=== PATIENT | male | born 2000 | race Caucasian/White ===

== ENCOUNTER 2021-05-18 15:23 | Outpatient (CLI) | payer SELFPAY ==
--- NOTE | 2021-05-18 15:31 | XR_ITS ---
WS: [id number] Right shoulder, 3 views, 05/18/2021 Clinical Data: S46.911A - Strain of unspecified muscle, fascia and tendo... Comparison: None. Findings: No fractures or dislocations are seen. The AC joint is normal. The adjacent right clavicle, right sca pula and ribs are normal. The soft tissues are unremarkable. XR/XR shoulder RT min 2V* [id number] Impression: Negative right shoulder.
== END 2021-05-18 15:24 | disposition home or self-care (01) ==
LOC: RAD 15:29
PROVIDERS: PCP Registered Nurse; Visit Provider Registered Nurse
DX: M25.511 Pain in right shoulder (principal)
CPT/HCPCS: 73030

== ENCOUNTER 2021-11-02 12:27 | Emergency (ER) | payer OTHER, SELFPAY ==
[2021-11-02 12:35] VITALS: BP 120/79; PULSE 79; RESP 18; TEMP 36.8; O2SAT 98; BMI 27.3
--- NOTE | 2021-11-02 12:50 | XR_ITS ---
WS: [id number] Right femur and thigh, AP and lateral views, 11/02/2021 Clinical Data: crush injury Comparison: None Findings: No fractures or dislocations are seen. The soft tissues are normal. The visualized knee shows no abno rmalities. The femoral head shows no erosion, sclerosis, narrowing or fragmentation of the right femoral head. XR/XR femur RT 1V [id number] Impression: Negative right femur and thigh.
--- NOTE | 2021-11-02 12:50 | XR_ITS ---
WS: [id number] Right hip, AP and frog-leg views, 11/02/2021 Clinical Data: crush injury/one view pelvis too please Comparison: None. Findings: No fractures or dislocations are seen. The hip joint is intact. The soft tissues are not remarkable. The adjacent pelvis is normal. XR/XR hip RT 2-3V wo/w pel* [id number] Impression: Negative right hip. Tonnis classification: grade 0: normal radiographs
--- NOTE | 2021-11-02 13:01 | USR_ITS ---
PROCEDURE INFORMATION: Exam: US Duplex Right Lower Extremity Arteries Or Arterial Bypass Grafts Exam date and time: 11/02/2021 1:42 PM Age: 21 years old Clinical indication: Injury or trauma; Other: Crushing injury to right hip at work today; Work related; Injury date: 11/02/2021; Injury details: A co-worker crushed him against a wall with a motorized bucket. Patient HX: No lacerations, no evident bruising of the hip or leg or calf or foot. No apparent edema of the rle. Considerable pain. ; Additional info: Crush injury/swelling TECHNIQUE: Imaging protocol: Right Real-time duplex scan of the arteries or arterial bypass grafts of the right lower extremity with 2-D umana scale, color Doppler flow and spectral waveform analysis. Images documented and saved. COMPARISON: CR XR femur RT 1V [id number] 11/02/2021 1:07 PM FINDINGS: Right common femoral artery: No occlusion or significant stenosis. Normal waveform. No pseudoaneurysm in the inguinal region. Right superficial femoral artery: No occlusion or significant stenosis. Normal waveform. Right popliteal artery: No occlusion or significant stenosis. Normal waveform. Right calf/foot arteries: No occlusion or significant stenosis in the visualized arteries. Normal waveforms. Dorsalis pedis artery is patent. Soft tissues: No hematoma or collection. US/[place] [id number] IMPRESSION: No stenosis or occlusion.
--- NOTE | 2021-11-02 13:02 | W.ED.LOWEXIN ---
Documented by User: RAQUEL Perez 11/02/21 15:13 HPI - Extremity Injury (Lower) General: Chief Complaint: Trauma Stated Complaint: Workmans Comp/body trauma from gravel bucket Time Seen by Provider: 11/02/21 12:42 Source: patient Mode of arrival: ambulatory Limitations: no limitations History of Present Illness: Patient is a 21-year-old male who presents to ED today with a Worker's Comp injury to his right lower extremity. Patient states he was at work when another individual who was operating some type of heavy machinery with a hydraulic bucket accidentally engaged the bucket which then clamped down on patient's right hip/thigh area. Patient is reporting fairly significant discomfort to this area. No back pain/abdominal pain. Patient has been ambulatory. Denies numbness, tingling, loss of sensation to leg. No obvious deformity noted. MD complaint: hip injury and thigh injury Onset (ago): hour(s) Injury: Right: hip, pelvis and thigh Type of Injury: other (crush) Place: work Severity: moderate Relieving factors: immobilization Exacerbating factors: weight bearing, movement and palpation Context: other (crush injury) Associated symptoms: Reports no associated symptoms Other symptoms: none Review of Systems Eyes: Denies: change in vision Card: Denies: chest pain Resp: Denies: dyspnea GI: Denies: abdominal pain, nausea or vomiting Musc: Reports: extremity pain (R lateral thigh/pelvis) and extremity swelling; Denies: neck pain, back pain, joint redness, joint warmth or joint stiffness Neuro: Denies: headache(s), numbness in extremities, weakness in extremities, sensory changes or dizziness PFS ED PFSH: Family History Other Diabetes Social History Smoking and tobacco status: never smoked Alcohol intake: never Adopted: No Caregiver/support person: Yes Lives independently: Yes Current occupational status: employed History of recent travel: Yes ([place] ) Sexually active: Yes Current gender identity: Male Physical Exam Const: COMMON NORMALS: no acute distress, average body habitus, patient oriented x3, no limitations, healthy appearing, alert and well nourished ORIENTATION/CONSCIOUSNESS: Yes awake, Yes oriented to person, Yes oriented to place and Yes oriented to time HENMT: COMMON NORMALS: normocephalic and atraumatic HEAD & SCALP: normocephalic and atraumatic Chest: COMMONS NORMALS: normal inspection of the chest and normal palpation of entire chest wall Resp: COMMON NORMALS: normal respiratory effort and clear to auscultation bilaterally AUSCULTATION: clear to auscultation bilaterally Cardio: COMMON NORMALS: regular rate and regular rhythm RATE: regular rate RHYTHM: regular rhythm GI: COMMON NORMALS: Normal to inspection, nondistended, normoactive bowel sounds present, Soft to palpation, non-tender, No hepatosplenomegaly present and no masses INSPECTION: Yes normal to inspection PALPATION: Yes Soft to palpation and Yes No hepatosplenomegaly present GI image (male): 1. 2. patient has two small areas of superficial abrasions to anteriolateral R hip/pelvis; no bony deformity noted; he does have some swelling to anteriolateral thigh but no tightness noted Back/Pelvis: COMMON NORMALS: thoracic and lumbar spine normal to inspection, no thoracic nor lumbar tenderness and thoraco-lumbar ROM normal Extremity: COMMON NORMALS: full ROM, capillary refill normal, no clubbing, cyanosis or edema, no calf tenderness and no pedal edema GENERAL: Yes normal exam except as noted OTHER: see diagram above; patient has normal sensation to R LE; DP/PT pulses normal with brisk cap refill Neuro: LISA COMA SCALE: document GCS findings Lisa coma scale eye opening: Spontaneous Lisa coma scale verbal response: Orientated F[place]ett coma scale motor response: Obey commands Lisa coma scale total score: 15 COMMON NORMALS: patient oriented x3, moves all extremities, no focal motor deficits, no sensory deficits noted and gait normal SENSORIUM/ORIENTATION: Yes alert, Yes oriented to person, Yes oriented to place and Yes oriented to time Skin: NARRATIVE SKIN EXAM: abrasions to anteriolateral R thigh; otherwise normal skin exam Course Vital Signs: Vital signs: Vital Signs Temperature 98.2 F 11/02/21 15:54 Pulse Rate 75 11/02/21 15:54 Respiratory Rate 18 11/02/21 15:54 Blood Pressure 135/75 11/02/21 15:54 Pulse Oximetry 100 11/02/21 15:54 MDM - Extremity Injury (Lower) Medical Decision Making Dr. Barros will assume care for patient as he is a trauma patient. Lab Data : 11/02/21 15:43 Radiology Impressions Femur X-Ray 11/02/21 12:50 Impression: Negative right femur and thigh. Hip/Pelvis X-Ray 11/02/21 12:50 Impression: Negative right hip. Tonnis classification: grade 0: normal radiographs Duplex Scan Lower Extremity Artery 11/02/21 13:01 IMPRESSION: No stenosis or occlusion. Pelvis X-Ray 11/02/21 14:01 Impression: Negative for fracture. Laboratory Results WBC 11.8 10^3/uL (4.5-13.0) 11/02/21 15:43 RBC 4.88 10^6/uL (4.1-5.3) 11/02/21 15:43 Hgb 14.6 g/dL (11.7-16.6) 11/02/21 15:43 Hct 42.3 % (42.0-52.0) 11/02/21 15:43 MCV 86.7 fl (80-94) 11/02/21 15:43 MCH 29.9 pg (28.0-34.0) 11/02/21 15:43 MCHC 34.5 g/dL (30.0-36.0) 11/02/21 15:43 RDW 12.9 % (12.1-15.1) 11/02/21 15:43 Plt Count 312 10^3/cmm (130-400) 11/02/21 15:43 MPV 10.1 fL (7.4-10.4) 11/02/21 15:43 Neut % (Auto) 68.5 % 11/02/21 15:43 Lymph % (Auto) 20.1 % 11/02/21 15:43 Smyth % (Auto) 8.0 % 11/02/21 15:43 Eos % (Auto) 2.6 % 11/02/21 15:43 Baso % (Auto) 0.5 % 11/02/21 15:43 Neut # (Auto) 8.07 10^3/uL (1.8-8.0) H 11/02/21 15:43 Lymph # (Auto) 2.4 10^3/uL (1.5-6.5) 11/02/21 15:43 Smyth # (Auto) 0.9 10^3/uL (0.2-0.9) 11/02/21 15:43 Eos # (Auto) 0.3 10^3/uL (0.0-0.8) 11/02/21 15:43 Baso # (Auto) 0.1 10^3/uL (0.0-0.1) 11/02/21 15:43 Nucleated RBC % (auto) 0 % 11/02/21 15:43 Nucleated RBCs # 0.0 /100WBC 11/02/21 15:43 Urine Color Yellow (Yellow) 11/02/21 14:44 Urine Appearance Clear (CLEAR) 11/02/21 14:44 Urine pH 6 (5-7) 11/02/21 14:44 Ur Specific Jerome 1.010 (1.005-1.030) 11/02/21 14:44 Urine Protein Neg (Negative) 11/02/21 14:44 Urine Glucose (UA) Norm (Normal) 11/02/21 14:44 Urine Ketones Negative (Negative) 11/02/21 14:44 Urine Blood Neg (Negative) 11/02/21 14:44 Urine Nitrate Negative (Negative) 11/02/21 14:44 Urine Bilirubin Neg (Negative) 11/02/21 14:44 Urine Urobilinogen Norm mg/dL (Negative) 11/02/21 14:44 Ur Leukocyte Esterase Negative (Negative) 11/02/21 14:44 Urine Opiates Screen Negative ng/mL (Negative) 11/02/21 14:44 Ur Barbiturates Screen Negative ng/mL (Negative) 11/02/21 14:44 Ur Phencyclidine Scrn Negative ng/mL (Negative) 11/02/21 14:44 Ur Amphetamines Screen Negative ng/mL (Negative) 11/02/21 14:44 U Benzodiazepines Scrn Negative ng/mL (Negative) 11/02/21 14:44 Urine Cocaine Screen Negative ng/mL (Negative) 11/02/21 14:44 U Marijuana (THC) Screen Negative ng/mL (Negative) 11/02/21 14:44 Ethyl Alcohol < 10 mg/dL (0-10) 11/02/21 15:35 Discharge Plan Discharge Patient Disposition: Home Clinical Impression: Work related injury Condition: Stable Prescriptions: New diclofenac sodium 75 mg tablet,delayed release (DR/EC) 75 mg PO Q12H PRN (Reason: pain) Qty: 20 0RF hydrocodone-acetaminophen 5-325 mg tablet 1 tab PO Q6H PRN (Reason: pain) Qty: 10 0RF No Action fluticasone propion-salmeterol [Advair Diskus] 250-50 mcg/dose blister with device 1 inh INHALATION BID Qty: 1 3RF Rx Instructions: 340B, please call if no longer on 340B. Ventolin HFA 90 mcg/actuation HFA aerosol inhaler 1 inh INHALATION QID PRN (Reason: Shortness Of Breath) 0RF Rx Instructions: 340b. May sub proair if needed. Discharge Orders: Discharge ED (Routine); Ordered 11/02/21 Ordered By: Bereket Barros Referrals: Ashleigh Escobar FNP [Primary Care Provider] - Discharge Diet: Usual diet Discharge Activity: Increase activity as tolerated Patient Instructions: Opioid Safety Activity Restrictions/Additional Instructions: Follow-up with your primary care doctor if you have any problems or return to the emergency room. Coding Level of Care Code ED Curing Oven Attendant for Chg Fwd Exam Comprehensive Documented by User: Bereket Barros, 11/02/21 17:11 HPI - Extremity Injury (Lower) General: Chief Complaint: Trauma Stated Complaint: Workmans Comp/body trauma from [employer] Time Seen by Provider: 11/02/21 12:42 [facility] ED PFSH: Family History Other Diabetes Social History Smoking and tobacco status: never smoked Alcohol intake: never Adopted: No Caregiver/support person: Yes Lives independently: Yes Current occupational status: employed History of recent travel: Yes ([facility] [place] ) Sexually active: Yes Current gender identity: Male Physical Exam GI: GI image (male): 1. 2. patient has two small areas of superficial abrasions to anteriolateral R hip/pelvis; no bony deformity noted; he does have some swelling to anteriolateral thigh but no tightness noted Neuro: LISA COMA SCALE: document GCS findings Lisa coma scale total score: 15 Course Vital Signs: Vital signs: Vital Signs Temperature 98.2 F 11/02/21 15:54 Pulse Rate 75 11/02/21 15:54 Respiratory Rate 18 11/02/21 15:54 Blood Pressure 135/75 11/02/21 15:54 Pulse Oximetry 100 11/02/21 15:54 MDM - Extremity Injury (Lower) Medical Decision Making Dr. Barros will assume care for patient as he is a trauma patient. Labs and imaging reviewed repeat exams unremarkable mild discomfort to soft tissue palpation along the right hip but no crepitus. Ultrasound shows good blood flow. Reviewed findings with the patient will discharge home he can return to work as needed diclofenac to use as needed gave him some hydrocodone to use for the next day or 2. Recheck fizzing worsening or change. We are going to get routine screening for drug and alcohol because of his workman comp. The employer was in the emergency room and declined the testing. Medical Records I reviewed the patient's medical records. Lab Data I reviewed the patient's lab results. : 11/02/21 15:43 Radiology Impressions Femur X-Ray 11/02/21 12:50 Impression: Negative right femur and thigh. Hip/Pelvis X-Ray 11/02/21 12:50 Impression: Negative right hip. Tonnis classification: grade 0: normal radiographs Duplex Scan Lower Extremity Artery 11/02/21 13:01
--- NOTE | 2021-11-02 14:01 | XR_ITS ---
WS: [id number] Pelvis, AP view, 11/02/2021 Clinical Data: trauma Comparison: None. Findings: No fractures or dislocations are seen. The SI joints and pubic symphysis are intact. The soft tissues are not remarkable. The hips are not remarkable. XR/XR pelvis 1-2V* [id number] Impression: Negative for fracture.
[2021-11-02] MEDS: HYDROcodone-acetaminophen 5-325 mg Tablet 1 TAB PO (14:53)
[2021-11-02 15:18] LABS: Add Urine Microscopic? NO; Charge for UA Resulting for Rev
--- NOTE | 2021-11-02 15:33 | PC.NURSE ---
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 He states that he does not want any drug or alcohol screening done on him.
[2021-11-02 15:34] VITALS: BP 135/75; PULSE 75; RESP 18; TEMP 36.8; O2SAT 100
[2021-11-02 15:43] LABS: Amphetamines Screen Urine Negative (Negative); Barbiturates Screen Urine Negative (Negative); Benzodiazepines Screen Urine Negative (Negative); Cocaine Screen Urine Negative (Negative); Opiate Screen Urine Negative (Negative); PCP Screen Urine Negative (Negative); THC Screen Urine Negative (Negative)
[2021-11-02 15:54] VITALS: BP 135/75; PULSE 75; RESP 18; TEMP 36.8; O2SAT 100
[2021-11-02 15:55] LABS: Urine Appearance Clear (CLEAR); Urine Color Yellow (Yellow)
[2021-11-02 15:56] LABS: Bilirubin Urine Neg (Negative); Blood Urine Neg (Negative); Glucose Urine UA Norm (Normal); Ketones Urine Negative (Negative); Leukocyte Esterase Urine Negative (Negative); Nitrate Urine Negative (Negative); Protein Urine Neg (Negative); Urobilinogen Urine Norm (Negative); pH Urine 6 (5-7)
[2021-11-02 16:04] LABS: Basophils # 0.1 10^3/uL (0.0-0.1); Basophils % 0.5 %; Eosinophils # 0.3 10^3/uL (0.0-0.8); Eosinophils % 2.6 %; Hematocrit 42.3 % (42.0-52.0); Hemoglobin 14.6 g/dL (11.7-16.6); Lymphocytes # 2.4 10^3/uL (1.5-6.5); Lymphocytes % 20.1 %; Mean Corpuscular HGB Conc 34.5 g/dL (30.0-36.0); Mean Corpuscular Hemoglobin 29.9 pg (28.0-34.0); Mean Corpuscular Volume 86.7 fl (80-94); Mean Platelet Volume 10.1 fL (7.4-10.4); Monocytes # 0.9 10^3/uL (0.2-0.9); Neutrophils # 8.07 10^3/uL (1.8-8.0); Neutrophils % 68.5 %; Nucleated Red Blood Cells % 0 %; Platelet Count 312 10^3/cmm (130-400); Red Blood Count 4.88 10^6/uL (4.1-5.3); Red Cell Distribution Width 12.9 % (12.1-15.1); White Blood Count 11.8 10^3/uL (4.5-13.0)
[2021-11-02 16:41] LABS: Alcohol Level < 10 mg/dL (0-10)
== END 2021-11-02 15:56 | disposition home or self-care (01) ==
PROVIDERS: Emergency Provider Family Medicine; PCP Registered Nurse
DX: S70.211A Abrasion, right hip, initial encounter (principal); W31.89XA Contact with other specified machinery, initial encounter
CPT/HCPCS: 72170; 73502; 73551; 80306; 80307; 81003; 85025; 93926; 99283

== ENCOUNTER → 2022-05-30 10:59 | Outpatient (BNVA) | payer SELFPAY | PROVIDERS: PCP Registered Nurse; Visit Provider Registered Nurse | DX: R05.9 Cough, unspecified (principal); J18.9 Pneumonia, unspecified organism | CPT/HCPCS: 87400 ==